=== PATIENT | male | born 1985 ===

== ENCOUNTER 2018-03-07 01:31 | Emergency (ER) | payer SELFPAY ==
[2018-03-07 01:37] VITALS: BP 135/85
[2018-03-07] MEDS ORDERED: FUL-GLO OP ONE (02:02)
[2018-03-07] MEDS ORDERED: BSS OU ONE (02:13)
--- NOTE | 2018-03-07 02:14 | Emergency Department Report ---
Eye Injury/Foreign Body - HPI Duration: Today Eye Location: Right Eye Symptoms: Eye Pain: No, Blurred Vision: No, Eye Redness: Yes, Grinding/Hammering Metal: No, Used Eye Protection: No, Contact Lens Use: No, Recalls Injury: No, Photophobia: No Other History: 33-year-old -[place] male presents to the emergency room for right eye redness 1 day. Patient states that he woke up both eyes red and S today persist his right eye got worse in his left eye improved. Patient denies any headache no change of vision. Patient reports he tried flushing his eye as well as tried [id number] eyedrops with no improvement. Patient this H that this mostly irritated. ED Review of Systems ROS: Stated complaint: IRRITATED EYES Other details as noted in HPI Comment: All other systems reviewed and negative Eyes: other (eye irritation) ED Past Medical Hx - Past Medical History Previous Medical History?: Yes Hx Asthma: Yes Hx HIV: Yes - Surgical History Hx Cholecystectomy: Yes Additional Surgical History: Back Surgery X 3, Right foot surgery - Social History Smoking Status: Never Smoker Substance Use Type: None - Medications Home Medications: Home Medications Medication Instructions Recorded Confirmed Last Taken Type Erythromycin [Erythromycin Ophth 1 applic OD QID #1 tube 03/07/18 Unknown Rx Oint] Ibuprofen [Motrin 600 MG tab] 600 mg PO Q8H PRN #15 tablet 03/07/18 Unknown Rx Eye Injury Exam - Exam General: Vital signs noted. No distress. Alert and acting appropriately. - Visual Acuity Right Vision Acuity Degree: 20/13 Eye Exam: Right Injection, Right EOMI, Right Fluorescein Uptake Left Vision Acuity Degree: 20/20 Bilateral Vision Acuity Degree: 20/13 ED Course Vital Signs 03/07/18 01:36 Temperature 97.7 F Pulse Rate 72 Respiratory 18 Rate Blood Pressure 135/85 O2 Sat by Pulse 96 Oximetry Critical care attestation.: If time is entered above; I have spent that time in minutes in the direct care of this critically ill patient, excluding procedure time. ED Disposition Clinical Impression: Corneal abrasion, right Qualifiers: Encounter type: initial encounter Qualified Code(s): S05.01XA - Injury of conjunctiva and corneal abrasion without foreign body, right eye, initial encounter Disposition: - TO HOME OR SELFCARE Is pt being admited?: No Does the pt Need Aspirin: No Condition: Stable Instructions: Corneal Abrasion (ED) Additional Instructions: Please use eye ointment antibiotics as prescribed. Motrin as needed for pain. Please follow-up with ophthalmology have listed their information below for your convenience. Prescriptions: Erythromycin [Erythromycin Ophth Oint] 1 applic OD QID #1 tube Ibuprofen [Motrin 600 MG tab] 600 mg PO Q8H PRN #15 tablet PRN Reason: Pain Referrals: DARIAN DE JESUS MD [Staff Physician] - 3-5 Days [facility] [Provider Group] - 3-5 Days [facility] [Provider Group] - 3-5 Days
== END 2018-03-07 02:47 | disposition home or self-care (01) ==
LOC: ED 01:31
DX: S05.01XA Injury of conjunctiva and corneal abrasion without foreign body, right eye, initial encounter (principal); J45.909 Unspecified asthma, uncomplicated; Z21 Asymptomatic human immunodeficiency virus [HIV] infection status; Z90.49 Acquired absence of other specified parts of digestive tract; X58.XXXA Exposure to other specified factors, initial encounter; Y93.89 Activity, other specified; Y92.89 Other specified places as the place of occurrence of the external cause; Y99.8 Other external cause status
CPT/HCPCS: 99282